=== PATIENT | male | born 1955 | race Caucasian/White ===

== ENCOUNTER → 2019-08-06 13:06 | Outpatient (CLI) | payer MEDICARE, SELFPAY ==
--- NOTE | ~2019-08-06 | MR_ITS ---
EXAMINATION: MR lumbar spine wo con EXAM DATE: 08/06/2019 13:38 INDICATION: Mainly right-sided low back pain. Right leg pain. TECHNIQUE: Multi-sequential, multiplanar MR images of the lumbar spine were obtained without contrast . Sagittal T1, T2, T2 fat saturation images. Axial T2 weighted images. Comparison is made to prior examination from 09/13/2018. FINDINGS: There are several small vertebral body focal signal abnormalities consistent with hemangiom tristan. There is moderate loss of the disc heights at T10-11, T11-12, L1-2 and L4-5, mild to moderate at L2-3 and L3-4 and mild at L4-5. The vertebral bodies are aligned in the AP dimension. Paraspinal sof t tissue is unremarkable. Level by level evaluation: T11-12: There is a minimal diffuse disc bulge. Facet arthropathy: Mild. Neural foraminal stenosis: No stenosis. Central canal stenosis: No stenosis. T12-L1: There is a mild diffuse disc bulge. Facet arthropathy: Mild. Neural foraminal stenosis: No stenosis. Central canal stenosis: No stenosis. L1-L2: There is a mild to moderate diffuse disc bulge. Facet arthropathy: Mild to moderate. Neural foraminal stenosis: Mild to moderate bilateral. Central canal stenosis: Mild to moderate. L2-L3: There is a mild to moderate diffuse disc bulge. Facet arthropathy: Moderate . Ligamentum flavum enlargement. Neural foraminal stenosis: Moderate bilateral. Central canal stenosis: Mild to moderate. L3-L4: There is a mild to moderate diffuse disc bulge. Facet arthropathy: Mild to moderate. Neural foraminal stenosis: Moderate left, mild to moderate right. Central canal stenosis: Mild to moderate. L4-L5: There is a moderate diffuse disc bulge, with central annular fissure Facet arthropathy: Mild to moderate. Neural foraminal stenosis: Moderate bilateral. Central canal stenosis: Moderate. L5-S1: There is a mild diffuse disc bulge. Facet arthropathy: Moderate. Neural foraminal stenosis: Moderate to severe left, no right. Central canal stenosis: No stenosis. Compared to prior study, slight interval progression in spondylosis. IMPRESSION: 1. Overall moderate lumbar spondylosis as detailed above. Reviewed, dictated and finalized at location B.
== END ==
PROVIDERS: PCP Emergency Medicine; Visit Provider Nurse Practitioner Family
DX: M48.07 Spinal stenosis, lumbosacral region (principal); M47.896 Other spondylosis, lumbar region
CPT/HCPCS: 72148

== ENCOUNTER → 2021-03-25 10:22 | Outpatient (CLI) | payer MEDICARE, SELFPAY ==
--- NOTE | ~2021-03-25 | XR_ITS ---
EXAMINATION: XR knee RT 2V DATE: 03/25/2021 10:51 INDICATION: Arthritis of knee, right. TECHNIQUE: 2 views of right knee on 3 radiographs standing were obtained. COMPARISON: None. FINDINGS: There is varus angulation at the knee. No fracture. There is severe osteoarthritis of media l compartment and moderate osteoarthritis of lateral and patellofemoral compartments. No knee joint e ffusion. IMPRESSION: 1. Severe right knee osteoarthritis. Reviewed, dictated and finalized at location E. 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
== END ==
PROVIDERS: Visit Provider Nurse Practitioner Family
DX: M17.11 Unilateral primary osteoarthritis, right knee (principal)
CPT/HCPCS: 73560

== ENCOUNTER → 2022-07-29 10:34 | Outpatient (CLI) | payer MEDICARE, OTHER, SELFPAY ==
--- NOTE | ~2022-07-29 | MR_ITS ---
EXAMINATION: MR lumbar spine wo con DATE: 07/29/2022 11:19 INDICATION: Lumbar radiculopathy. Low back pain. TECHNIQUE: Magnetic resonance imaging (MRI) of the lumbar spine was performed without intravenous con trast. Sequences included sagittal T2-weighted FSE, sagittal T2-weighted FS FSE, sagittal T1-weighted FSE, and axial T2-weighted FSE. COMPARISON: Lumbar spine MRI 08/06/2019 FINDINGS: Bone alignment is normal. Vertebral body heights are normal. There is a hemangioma in L1 ve rtebral body. There is mildly decreased disc height at T12-L1, moderately decreased disc height at L1 -L2, L2-L3, and L3-L4, severely decreased disc height at L4-L5 with endplate remodeling. The distal s ad cord signal intensity is normal. The conus medullaris is at T12. The following disc levels are specifically discussed: L1-L2: The disc is bulging with superimposed right central extrusion. There is moderate bilateral fac et joint osteoarthritis. There is mild right and moderate left neural foraminal stenosis. There is mi ld central canal stenosis. L2-L3: The disc is bulging. There is severe bilateral facet joint osteoarthritis. There is moderate r ight and mild left neural foraminal stenosis. There is mild central canal stenosis. L3-L4: The disc is bulging and has an annular fissure. There is moderate bilateral facet joint osteoa rthritis. There is moderate bilateral neural foraminal stenosis. There is mild central canal stenosis . L4-L5: The disc is bulging with superimposed central extrusion. There is moderate bilateral facet alvin nt osteoarthritis. There is moderate bilateral neural foraminal stenosis. There is mild central canal stenosis. L5-S1: The disc does not extend beyond the endplate margin. There is severe bilateral facet joint ost eoarthritis. There is mild right and moderate left neural foraminal stenosis. There is no central can al stenosis. IMPRESSION: 1. Severe lumbar spondylosis, stable from 08/06/2019. Reviewed, dictated and finalized at location A.
== END ==
PROVIDERS: PCP Nurse Practitioner Family; Visit Provider Nurse Practitioner Family
DX: M47.816 Spondylosis without myelopathy or radiculopathy, lumbar region (principal)
CPT/HCPCS: 72148